=== PATIENT | male | born 1995 ===

== ENCOUNTER 2018-11-01 08:43 | Emergency (ER) | payer MEDICAID ==
[~2018-11-01] VITALS: Ht 167.6 cm; Wt 71.0 kg
[2018-11-01 08:46] VITALS: BP 134/84
--- NOTE | 2018-11-01 09:21 | NUR ---
D/C INST AND RX REVIEWED WITH PT. PT VERBALIZED HAVING NO ID AND NO MONEY. CARE CHEST INFORMATION PROVIDED. PT REFUSED TO SIGN D/C FORM AND SAID HE DID NOT WANT TO TAKE THE D/C INFORMATION, RX, OR CARE CHEST INFORMATION. PT LEFT WITH UPRIGHT STEADY GAIT.
== END 2018-11-01 09:24 | disposition home or self-care (01) ==
LOC: ED 09:20
DX: L03.114 Cellulitis of left upper limb (principal)
CPT/HCPCS: 99283